=== PATIENT | female | born 1980 | race Caucasian/White ===

== ENCOUNTER → 2019-01-24 12:07 | Outpatient (CLI) | payer SELFPAY ==
--- NOTE | 2019-01-24 12:24 | US_ITS ---
PROCEDURE: US TRANSVAGINAL CLINICAL INDICATION: vaginal bleeding The COMPARISON: No exams were available for comparison FINDINGS: UTERUS: 9 x 3.6 x 5.2 cm with a combined endometrial thickness of 8 mm. No intrauterine gestational sac is evident. LEFT OVARY: 3 x 2 x 2.5 cm RIGHT OVARY: 2.4 x 1.7 x 1.9 cm No adnexal mass. No cul-de-sac fluid. IMPRESSION: No intrauterine gestation evident. Does the patient have a positive test? Unremarkable pelvic ultrasound Dictated by: Luis Carlos Claros MD 01/24/2019 16:49 Electronically signed by Luis Carlos Claros MD in [facility] 01/24/2019 16:49
[2019-01-24 14:17] LABS: Alanine Aminotransferase 42 U/L (12-78); Albumin Level 3.6 gm/dL (3.4-5.0); Alkaline Phosphatase 89 U/L (46-116); Anion Gap 13.9 mEq/L (5-15); Aspartate Amino Transferase 20 U/L (15-37); Bilirubin,Total 0.2 mg/dL (0.2-1.0); Blood Urea Nitrogen 15 mg/dL (7-18); Calcium 8.6 mg/dL (8.5-10.1); Carbon Dioxide 25 mmol/L (21.0-32.0); Chloride 103 mmol/L (98-107); Creatinine,Serum 0.49 mg/dL (0.55-1.02); Estimated Glomerular Filt Rate 141 ml/min (>60); GFR (African American) 170 ML/MIN (>60); Globulin 3.5 gm/dl (1.3-3.2); Glucose 202 mg/dL (74-106); Potassium 3.9 mmoL/L (3.5-5.1); Sodium 138 mmol/L (136-145); Total Protein,Serum 7.1 gm/dL (6.4-8.2)
== END ==
LOC: LAB 12:10 → RAD 12:19
PROVIDERS: PCP Nurse Practitioner Family; Visit Provider Nurse Practitioner Family
DX: R73.9 Hyperglycemia, unspecified (principal); N92.6 Irregular menstruation, unspecified; O46.90 Antepartum hemorrhage, unspecified, unspecified trimester
CPT/HCPCS: 76830; 80053